=== PATIENT | male | born 1955 | race Caucasian/White ===

== ENCOUNTER 2020-05-29 10:41 | Inpatient (IN) | payer MEDICARE, BC ==
[~2020-05-29] VITALS: Ht 180.3 cm; Wt 70.3 kg
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
[2020-05-29] MEDS ORDERED: SILD100T PO (11:13)
[2020-05-29] MEDS ORDERED: TADA5TAB2 PO (11:13)
[2020-05-29] MEDS ORDERED: TAMS-12 PO (11:13)
[2020-05-29] MEDS ORDERED: LITH300T PO (11:13)
[2020-05-29 11:17] LABS: BASOPHILS % (AUTO) 0.5 % (0.0-2.0); EOSINOPHILS % (AUTO) 0.3 % (0.0-6.0); HEMATOCRIT 40 % (39-51); HEMOGLOBIN 13.4 g/dL (13.5-17.5); LYMPHOCYTES # (AUTO) 0.8 /CMM (0.8-4.8); LYMPHOCYTES % (AUTO) 11.3 % (20.0-44.0); MEAN CORPUSCULAR HGB CONC 34 g/dl (31.0-36.0); MEAN CORPUSCULAR VOLUME 94 fL (80-96); MONOCYTES # (AUTO) 0.5 /CMM (0.1-1.30); NEUTROPHILS # (AUTO) 5.5 /CMM (1.8-8.9); NEUTROPHILS % (AUTO) 80.9 % (43.0-81.0); PLATELET COUNT (AUTO) 263 /CMM (150-450); RED BLOOD CELL COUNT(AUTO) 4.21 MIL/uL (4.5-6.0); WHITE BLOOD COUNT (AUTO) 6.8 K/uL (4.3-11.0)
[2020-05-29 11:32] LABS: ALANINE AMINOTRANSFERASE 67 U/L (12-78); ALBUMIN 4.2 g/dL (3.4-5.0); ALCOHOL, BLOOD < 3 mg/dL (0-0); ALKALINE PHOSPHATASE 76 U/L (46-116); ASPARTATE AMINOTRANSFERASE 60 U/L (15-37); BILIRUBIN,DIRECT 0.3 mg/dL (0.0-0.2); BILIRUBIN,TOTAL 1.6 mg/dL (0.2-1.0); CARBON DIOXIDE 25 mmol/L (21-32); CHLORIDE 102 mmol/L (98-107); GLUCOSE 100 mg/dL (74-106); POTASSIUM 3.6 mmol/L (3.5-5.1); SODIUM SERUM 137 mmol/L (136-145); TOTAL PROTEIN, SERUM 7.5 g/dL (6.4-8.2); UREA NITROGEN, BLOOD 12 mg/dL (7-18)
[2020-05-29 11:33] LABS: ACETAMINOPHEN 0 ug/ml (10-30)
[2020-05-29 11:38] LABS: BILIRUBIN,URINE Negative (NEGATIVE); COLOR,URINE YELLOW (YELLOW); LEUKOCYTE ESTERASE ,URINE Negative (NEGATIVE); NITRITE, URINE Negative (NEGATIVE); PROTEIN,URINE Negative (NEGATIVE); UGLUCOSE Negative (NEGATIVE); UROBILINOGEN,URINE 0.2 EU/dL (0.2)
--- NOTE | 2020-05-29 11:40 | NUR ---
RAPID COVID SWAB DONE AND SENT TO LAB
--- NOTE | 2020-05-29 12:25 | NUR ---
RECEIVED RESULTS FROM LAB: RAPID COVID NEGATIVE
--- NOTE | 2020-05-29 13:17 | NUR ---
report given to Lily ASHFORD for annetta
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
[2020-05-29 16:00] VITALS: BP 132/83
[2020-05-29] MEDS ORDERED: MAGNESIUM HYDROXIDE 30 ML UDC PO PRN (16:00)
[2020-05-29] MEDS ORDERED: BLOOD SUGAR DIAGNOSTIC 1 EACH STRIP IN ONE (16:00)
[2020-05-29] MEDS ORDERED: MAG HYDROX/AL HYDROX/SIMETH 30 ML UDC PO PRN (16:00)
[2020-05-29] MEDS: TAMSULOSIN 0.4 MG CAP.SR.24H PO SCH (18:39)
[2020-05-29 20:00] VITALS: BP 105/55
[2020-05-30 06:59] LABS: CHOLESTEROL 122 mg/dL (<200); HDL CHOLESTEROL 67 mg/dL (40-60); LDL 49 mg/dL (0-99); TRIGLYCERIDES 54 mg/dL (30-150)
[2020-05-30 07:17] LABS: ALBUMIN 3.5 g/dL (3.4-5.0); BILIRUBIN,TOTAL 0.8 mg/dL (0.2-1.0); CALCIUM, SERUM 8.3 mg/dL (8.5-10.1); CREATININE 0.8 mg/dL (0.6-1.3); POTASSIUM 3.2 mmol/L (3.5-5.1); TOTAL PROTEIN, SERUM 6.4 g/dL (6.4-8.2)
[2020-05-30] MEDS: POTASSIUM CHLORIDE 20 MEQ TAB.PRT.SR PO ONE (10:00)
[2020-05-30] MEDS: LITHIUM CARBONATE (300 MG CAP) 300 MG CAPSULE PO SCH ×2 (11:15→20:52)
[2020-05-30 11:27] VITALS: BP 142/91
--- NOTE | 2020-05-30 12:15 | NUR ---
SW Initial Discharge Plan: Patient currently resides at [id number] [place] [address], [place] [id number]; ([phone]). Patient would want to return back home. This SW contacted patient's Saloni ([phone]) to gather collateral. Per Saloni, she does not want patient back home. Saloni wants patient at a nursing facility. This SW will help coordinate discharge plan.
--- NOTE | 2020-05-30 12:16 | NUR ---
SW Family Contact: This SW spoke with patient's Saloni ([phone]) who stated patient cannot return back home because she is unable to take care of him and is scared of him.
[2020-05-30] MEDS: LORAZEPAM 1 MG TABLET PO PRN ×2 (14:21→23:59)
[2020-05-30] MEDS ORDERED: OLANZAPINE 10 MG VIAL IM STA (14:22)
--- NOTE | 2020-05-30 14:28 | NUR ---
RN NOTE :PATIENT AGITATED AND MEDICATED WITH ATIVAN 1MG PO X1. WILL CONTINUE TO MONITOR .
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
[2020-05-30] MEDS ORDERED: CLONIDINE HCL 0.1 MG TABLET PO PRN (16:30)
[2020-05-30 16:47] VITALS: BP 156/101
[2020-05-30] MEDS: TAMSULOSIN 0.4 MG CAP.SR.24H PO SCH (17:12)
--- NOTE | 2020-05-30 18:27 | NUR ---
RN NOTE:PATIENT BP 156/101 ,PULSE 75 DR. CUELLO NOTIFIED WITH NEW ORDER CLONIDINE 0.1MG PO Q6 PRN FOR SBP ABOVE 150 MEDICATE PATIENT AND BP AT 1800 150/80 P 76. WILL CONTINUE TO MONITOR.
[2020-05-30 20:00] VITALS: BP 129/69
[2020-05-30] MEDS: ZOLPIDEM TARTRATE 5 MG TABLET PO PRN (22:05)
--- NOTE | 2020-05-30 22:07 | NUR ---
RN NOTES: INSOMNIA PT. UNABLE TO SLEEP AMBIEN 5 MG PO PRN GIVEN ,WILL CONTINUE TO MONITOR.
--- NOTE | 2020-05-31 | NUR ---
RN NOTES: ANXIETY PT. VERY ANXIOUS PARANOID SCREAMING YELLING IN THE HALLWAY ATIVAN 1 MG PO PRN GIVEN , WILL CONTINUE TO MONITOR.
[2020-05-31 07:00] LABS: CALCIUM, SERUM 8.6 mg/dL (8.5-10.1); CREATININE 0.8 mg/dL (0.6-1.3); POTASSIUM 3.3 mmol/L (3.5-5.1)
--- NOTE | 2020-05-31 07:07 | NUR ---
RN NOTES: PT. RESTING HIS ROOM, NO ACUTE DISTRESS NOTES , NO CHANGE OF CONDITION NOTED , DENIES ANY PAIN DISCOMFORT AT THIS TIME ,PT. BEHAVIOR EASILY AGITAED, PARANOID, HYPERVERBAL NEEDS FREQUENTLY REDIRECTIONS, ALL NEEDS ATTENDED AND ANTICIPATED, WILL ENDORSE TO DAY NURSE FOR CONTINUITY OF CARE .
[2020-05-31 08:00] VITALS: BP 131/88
[2020-05-31] MEDS: ARIPIPRAZOLE 5 MG TABLET PO SCH (09:11)
[2020-05-31] MEDS: LORAZEPAM 1 MG TABLET PO PRN (09:11)
[2020-05-31] MEDS: LITHIUM CARBONATE (300 MG CAP) 300 MG CAPSULE PO SCH ×2 (09:11→20:45)
[2020-05-31] MEDS ORDERED: POTASSIUM CHLORIDE 20 MEQ TAB.PRT.SR PO ONE (10:00)
--- NOTE | 2020-05-31 11:12 | NUR ---
SW SNF Referral: WSW faxed patient's referral packet to [facility] ([phone]) for review and patient is accepted. Duglas and ADELE approved patient's admission.
--- NOTE | 2020-05-31 11:13 | NUR ---
ROXANNA Family Contact: ROXANNA spoke with patient's Saloni ([phone]) and told her of patient' acceptance at [facility]. She was very happy and thankful.
[2020-05-31 16:00] VITALS: BP 134/90
[2020-05-31] MEDS: TAMSULOSIN 0.4 MG CAP.SR.24H PO SCH (18:28)
[2020-05-31 20:18] VITALS: BP 125/85
[2020-06-01 08:00] VITALS: BP 130/90
[2020-06-01] MEDS: ARIPIPRAZOLE 5 MG TABLET PO SCH (09:12)
[2020-06-01] MEDS: LORAZEPAM 1 MG TABLET PO PRN (09:12)
[2020-06-01] MEDS: LITHIUM CARBONATE (300 MG CAP) 300 MG CAPSULE PO SCH ×2 (09:12→21:56)
--- NOTE | 2020-06-01 09:20 | NUR ---
yelling out,starting to be very agitated and combative given ativan 1 mg po.
--- NOTE | 2020-06-01 16:56 | NUR ---
agitated in am,quieter now.
[2020-06-01 17:00] VITALS: BP 133/88
[2020-06-01] MEDS: TAMSULOSIN 0.4 MG CAP.SR.24H PO SCH (18:30)
[2020-06-01 20:04] VITALS: BP 101/52
[2020-06-01 20:30] LABS: CALCIUM, SERUM 8.8 mg/dL (8.5-10.1); CREATININE 0.8 mg/dL (0.6-1.3); POTASSIUM 3.8 mmol/L (3.5-5.1)
[2020-06-02 08:00] VITALS: BP 121/73
[2020-06-02] MEDS ORDERED: ARIPIPRAZOLE 5 MG TABLET PO SCH (09:00)
--- NOTE | 2020-06-02 09:30 | NUR ---
Followed up with lab on lithium toxicity results and they have yet to be sent to [email or web address] for processing. Held AM lithium dose at this time until toxicity results come back. aware.
[2020-06-02] MEDS: LITHIUM CARBONATE (300 MG CAP) 300 MG CAPSULE PO SCH ×2 (11:56→21:28)
[2020-06-02 16:00] VITALS: BP 134/82
[2020-06-02] MEDS: OLANZAPINE ZYDIS 5 MG TAB.RAPDIS PO SCH (17:03)
[2020-06-02] MEDS: TAMSULOSIN 0.4 MG CAP.SR.24H PO SCH (17:03)
--- NOTE | 2020-06-02 18:51 | NUR ---
RN CLOSING NOTE Patient compliant with medications today, appears disheveled, periods of paranoia. Patient is currently in room, resting. Safety precautions in place. Will endorse to oncoming shift.
--- NOTE | 2020-06-02 19:32 | NUR ---
GPS RN NOTE, RECEIVED PATIENT AWAKE AND IN BED, NO S/S OR COMPLAINTS OF PAIN AT THIS TIME. PATIENT IS DISPLAYING NO S/S OF APPARENT DISTRESS AT THIS TIME. PATIENT BREATHING IS UNLABORED WITH EQUAL RISE AND FALL OF THE CHEST. PATIENT IS ALERT AND ORIENTED X 1-2 ON ROOM AIR WITH A SPO2 95%. PATIENT IS COMPLIANT WITH MEDICATIONS, ANXIOUS AT TIMES, PARANOID, GRANDIOSE, HYPERVERBAL, AND COOPERATIVE. PATIENT DENIES SUICIDAL AND HOMICIDAL IDEATIONS AT THIS TIME. PATIENT ASSISTED WITH TURNING AND REPOSITIONING Q2HR AND PRN FOR COMFORT AND CIRCULATION. PATIENT HAS NO NEEDS AT THIS TIME. PATIENT EDUCATED ON THE USE OF THE CALL ARAGON. PATIENT BED SIDE RAILS UP X 2 FOR SAFETY. PATIENT BED IS LOCKED, LOW, WITH BED ALARM ON. WILL CONTINUE TO MONITOR THIS PATIENT Q15 MINUTES WITH THE HELP OF STAFF TO MAINTAIN SAFETY.
[2020-06-02 20:28] VITALS: BP 147/81
[2020-06-03 08:00] VITALS: BP 135/89
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
[2020-06-03] MEDS: OLANZAPINE ZYDIS 5 MG TAB.RAPDIS PO SCH ×2 (09:22→16:56)
[2020-06-03] MEDS: LITHIUM CARBONATE (300 MG CAP) 300 MG CAPSULE PO SCH ×3 (09:22→10:39)
--- NOTE | 2020-06-03 09:49 | NUR ---
Court Hearing: Patient court hearing is today and it was upheld for GD.
--- NOTE | 2020-06-03 13:20 | NUR ---
Individual Counseling: pantry goods worker met with patient for brief counseling to help address patients presenting problem aggressive behavior. Patient is unable to engage in a meaningful conversation due to patient being verbally aggressive. Patient was yelling "I want to talk to my ". Patient was unable to have counseling at this moment.
[2020-06-03 16:00] VITALS: BP 141/88
[2020-06-03] MEDS: TAMSULOSIN 0.4 MG CAP.SR.24H PO SCH (18:14)
--- NOTE | 2020-06-03 19:30 | NUR ---
GPS RN NOTE, RECEIVED PATIENT AWAKE AND IN BED, NO S/S OR COMPLAINTS OF PAIN AT THIS TIME. PATIENT IS DISPLAYING NO S/S OF APPARENT DISTRESS AT THIS TIME. PATIENT BREATHING IS UNLABORED WITH EQUAL RISE AND FALL OF THE CHEST. PATIENT IS ALERT AND ORIENTED X 1-2 ON ROOM AIR WITH A SPO2 98%. PATIENT IS COMPLIANT WITH MEDICATIONS, ANXIOUS AT TIMES, PARANOID, GRANDIOSE, RELIGIOUSLY PREOCCUPIED, HYPERVERBAL, AND COOPERATIVE. PATIENT DENIES SUICIDAL AND HOMICIDAL IDEATIONS AT THIS TIME. PATIENT ASSISTED WITH TURNING AND REPOSITIONING Q2HR AND PRN FOR COMFORT AND CIRCULATION. PATIENT HAS NO NEEDS AT THIS TIME. PATIENT EDUCATED ON THE USE OF THE CALL ARAGON. PATIENT BED SIDE RAILS UP X 2 FOR SAFETY. PATIENT BED IS LOCKED, LOW, WITH BED ALARM ON. WILL CONTINUE TO MONITOR THIS PATIENT Q15 MINUTES WITH THE HELP OF STAFF TO MAINTAIN SAFETY.
[2020-06-03 20:00] VITALS: BP 131/76
[2020-06-03] MEDS: LITHIUM CARBONATE 150 MG CAPSULE PO SCH (21:17)
--- NOTE | 2020-06-03 21:17 | NUR ---
GPS RN NOTE, PATIENT REFUSED LITHIUM CARBONATE 600 MG PO HS. OFFERED THREE TIMES AND STILL PATIENT REFUSED STATING, " I ONLY TAKE 300 MG OF LITHIUM CARBONATE AT A TIME AND IF I TAKE 600 MG YOU WILL OVERDOSE ME ". EDUCATED PATIENT ON THE RISKS AND BENEFITS OF TAKING AND REFUSING LITHIUM. WILL CONTINUE TO MONITOR THIS PATIENT.
[2020-06-04 08:00] VITALS: BP 161/99
[2020-06-04] MEDS: LITHIUM CARBONATE (300 MG CAP) 300 MG CAPSULE PO SCH (08:53)
[2020-06-04] MEDS: OLANZAPINE ZYDIS 5 MG TAB.RAPDIS PO SCH ×2 (08:53→17:22)
--- NOTE | 2020-06-04 09:00 | NUR ---
RN NOTE- PT INAPPROPRIATE SHOWING HIS GENITALS IN HALLWAY. REDIRECTED AND INFORMED SUCH BEHAVIOR WAS INTOLERABLE. AGREED TO CEASE BEHAVIORS AND APOLOGIZED. MED COMPLIANT, PO INTAKE GOOD DELUSIONAL AND MANIC AT TIMES
[2020-06-04] MEDS: LORAZEPAM 1 MG TABLET PO PRN (15:31)
--- NOTE | 2020-06-04 15:31 | NUR ---
RN NOTE- INCREASING AGITATION REGARDING "DEMONS IN HALLS ON FLOORS" REDIRECTED. PT WAVING ARMS AND YELLING AT OTHER PTS. ATIVAN 1 MG GIVEN
[2020-06-04 16:00] VITALS: BP 156/99
[2020-06-04] MEDS: TAMSULOSIN 0.4 MG CAP.SR.24H PO SCH (18:22)
--- NOTE | 2020-06-04 19:30 | NUR ---
GPS RN NOTE, RECEIVED PATIENT AWAKE AND IN BED, NO S/S OR COMPLAINTS OF PAIN AT THIS TIME. PATIENT IS DISPLAYING NO S/S OF APPARENT DISTRESS AT THIS TIME. PATIENT BREATHING IS UNLABORED WITH EQUAL RISE AND FALL OF THE CHEST. PATIENT IS ALERT AND ORIENTED X 1-2 ON ROOM AIR WITH A SPO2 97%. PATIENT IS COMPLIANT WITH MEDICATIONS, ANXIOUS AT TIMES, PARANOID, GRANDIOSE, RELIGIOUSLY PREOCCUPIED, SEXUALLY INAPPROPRIATE, HYPERVERBAL, AND COOPERATIVE. PATIENT DENIES SUICIDAL AND HOMICIDAL IDEATIONS AT THIS TIME. PATIENT ASSISTED WITH TURNING AND REPOSITIONING Q2HR AND PRN FOR COMFORT AND CIRCULATION. PATIENT HAS NO NEEDS AT THIS TIME. PATIENT EDUCATED ON THE USE OF THE CALL ARAGON. PATIENT BED SIDE RAILS UP X 2 FOR SAFETY. PATIENT BED IS LOCKED, LOW, WITH BED ALARM ON. WILL CONTINUE TO MONITOR THIS PATIENT Q15 MINUTES WITH THE HELP OF STAFF TO MAINTAIN SAFETY.
[2020-06-04 20:05] VITALS: BP 117/62
[2020-06-04] MEDS: LITHIUM CARBONATE 150 MG CAPSULE PO SCH (22:15)
[2020-06-05] MEDS: ZOLPIDEM TARTRATE 5 MG TABLET PO PRN ×2 (00:57→21:36)
--- NOTE | 2020-06-05 00:57 | NUR ---
GPS RN NOTE, PATIENT HAS A COMPLAINT OF NOT BEING ABLE TO SLEEP AND IS REQUESTING AMBIEN AT THIS TIME. PATIENT VITAL SIGNS ARE STABLE. GAVE AMBIEN 5MG PO HS PRN ORDERED. WILL REASSESS FOR INSOMNIA AND I WILL CONTINUE TO MONITOR THIS PATIENT.
[2020-06-05 08:00] VITALS: BP 131/85
[2020-06-05] MEDS: LITHIUM CARBONATE (300 MG CAP) 300 MG CAPSULE PO SCH (09:27)
[2020-06-05] MEDS: OLANZAPINE ZYDIS 5 MG TAB.RAPDIS PO SCH ×2 (09:27→16:31)
[2020-06-05 16:00] VITALS: BP 135/70
[2020-06-05] MEDS: TAMSULOSIN 0.4 MG CAP.SR.24H PO SCH (17:15)
[2020-06-05 20:00] VITALS: BP 147/94
[2020-06-05] MEDS: LITHIUM CARBONATE 150 MG CAPSULE PO SCH (21:34)
--- NOTE | 2020-06-05 21:40 | NUR ---
Pt c/o insomnia. Least restrictive measures ineffective. Ambien 5 mg po prn given as ordered. Will continue to monitor.
--- NOTE | 2020-06-05 22:48 | NUR ---
Post 1 hr, Abramien effective. Pt asleep in bed easy to arouse. Will continue to monitor.
[2020-06-06] MEDS: LORAZEPAM 1 MG TABLET PO PRN (03:00)
--- NOTE | 2020-06-06 03:05 | NUR ---
Pt c/o of anxiety. Roaming in hallways and talking loudly. Least restrictive measures ineffective. Ativan 1 mg po prn given as ordered. Will continue to monitor.
--- NOTE | 2020-06-06 04:10 | NUR ---
Post 1 hr Ativan effective. Pt in room sitting in bed quietly and calm. Will continue to monitor.
[2020-06-06 08:00] VITALS: BP 123/85
--- NOTE | 2020-06-06 09:00 | NUR ---
RN NOTE- ALERT ORIENTED MED COMPLIANT STILL CONTINUES W DELUSIONS REGARDING DEMONS EVERYWHERE. ZYPREXA INCREASED PO INTAKE GOOD. NO INAPPROPRIATE BEHAVIOR OR CONVERSATIONS
[2020-06-06] MEDS: LITHIUM CARBONATE (300 MG CAP) 300 MG CAPSULE PO SCH (09:42)
[2020-06-06] MEDS: OLANZAPINE ZYDIS 5 MG TAB.RAPDIS PO SCH ×2 (09:42→16:56)
[2020-06-06 16:00] VITALS: BP 120/88
[2020-06-06] MEDS: TAMSULOSIN 0.4 MG CAP.SR.24H PO SCH (18:05)
[2020-06-06 20:54] VITALS: BP 130/76
[2020-06-06] MEDS: diphenhydrAMINE HCL 50 MG CAPSULE PO SCH (22:09)
[2020-06-06] MEDS: LITHIUM CARBONATE 150 MG CAPSULE PO SCH (22:09)
[2020-06-06] MEDS: ZOLPIDEM TARTRATE 5 MG TABLET PO PRN (23:57)
--- NOTE | 2020-06-07 06:53 | NUR ---
GPS RN CLOSING NOTES: PATIENT AWAKE, A/O X2, PACING IN HALLWAY, RELIGIOUSLY PREOCCUPIED. SLEPT 5 HRS THIS SHIFT. RESPIRATION EVEN AND UNLABORED WITH EQUAL RISE AND FALL OF THE CHEST ON ROOM AIR. NO S/S OF DISTRESS. SAFETY PRECAUTION MAINTAINED, BED IN LOWEST POSITION AND LOCKED. Q15 MINUTES SAFETY ROUND CONTINUED. ALL PATIENT CARE NEEDS MET AT THIS TIME. WILL CONTINUE TO MONITOR PATIENT FOR MOOD, BEHAVIOR AND SAFETY AND ENDORSE TO AM SHIFT.
[2020-06-07 08:00] VITALS: BP 130/90
[2020-06-07] MEDS: OLANZAPINE ZYDIS 5 MG TAB.RAPDIS PO SCH ×2 (08:17→17:48)
[2020-06-07] MEDS: LITHIUM CARBONATE (300 MG CAP) 300 MG CAPSULE PO SCH (08:17)
--- NOTE | 2020-06-07 14:52 | NUR ---
Family Contact: SW spoke with patient's Saloni ([phone]) and informed her that the pt is manic and has not shown enough improvement to be discharged to [facility] at this time. She expressed her concern with his progress and states that she wants him to improve so eventually he will be able to come back home. SW stated that the plan is to take it one step at a time and if he shows enough improvement at the SNF she will be able to take him home if she wants.
[2020-06-07 16:00] VITALS: BP 138/98
[2020-06-07] MEDS: TAMSULOSIN 0.4 MG CAP.SR.24H PO SCH (18:35)
[2020-06-07 20:52] VITALS: BP 128/95
[2020-06-07] MEDS: LITHIUM CARBONATE 150 MG CAPSULE PO SCH (22:00)
[2020-06-07] MEDS: diphenhydrAMINE HCL 50 MG CAPSULE PO SCH (22:00)
[2020-06-07] MEDS: ZOLPIDEM TARTRATE 5 MG TABLET PO PRN (22:05)
--- NOTE | 2020-06-07 22:10 | NUR ---
PT refused to take 2200 [place] carbonate 600g
--- NOTE | 2020-06-07 22:11 | NUR ---
Pt refused to take 2200 lithium carbonate 600 mg. Pt only wants to take 300 mg. Pt took 300 mg and states, "I dont want 600 mg because it gives me lithium toxicity but i will take 300 mg." Explained risk and benefits and offered x3. Charge nurse RN aware and will endorse to next shift.
--- NOTE | 2020-06-07 22:15 | NUR ---
Pt refused Benadryl 50 mg. Pt states " I dont need that, i want ambien". Pt c/o of insomnia. Least restrictive measures ineffective. Ambien PRN given as ordered. Will continue to monitor.
--- NOTE | 2020-06-07 23:18 | NUR ---
Post 1 hr ambien 5 mg effective. Pt asleep in bed easy to arouse. Frequent visual check done for safety. Will continue to monitor.
[2020-06-08 08:00] VITALS: BP 118/88
[2020-06-08] MEDS: LORAZEPAM 1 MG TABLET PO PRN (08:09)
[2020-06-08] MEDS: TAMSULOSIN 0.4 MG CAP.SR.24H PO SCH (08:09)
[2020-06-08] MEDS: LITHIUM CARBONATE (300 MG CAP) 300 MG CAPSULE PO SCH (08:10)
[2020-06-08] MEDS: OLANZAPINE ZYDIS 5 MG TAB.RAPDIS PO SCH ×2 (08:10→17:34)
--- NOTE | 2020-06-08 08:10 | NUR ---
starting to get agitated,given ativan po.
--- NOTE | 2020-06-08 14:24 | NUR ---
Family Contact: SW spoke with patient's Saloni ([phone]) and informed her that the pt appears to remain manic and that once he stabilizes and the MD provides a discharge date the SW will inform her and send the pt. SW stated that she is also attempting to locate the pts belongings.
[2020-06-08 16:00] VITALS: BP 120/90
--- NOTE | 2020-06-08 18:30 | NUR ---
loud and very needy,but med compliant.
[2020-06-08 20:42] VITALS: BP 151/92
[2020-06-08] MEDS: LITHIUM CARBONATE 150 MG CAPSULE PO SCH (21:28)
[2020-06-08] MEDS: diphenhydrAMINE HCL 50 MG CAPSULE PO SCH (21:28)
[2020-06-08] MEDS: ZOLPIDEM TARTRATE 5 MG TABLET PO PRN (23:16)
[2020-06-09 08:00] VITALS: BP 142/92
[2020-06-09] MEDS: OLANZAPINE ZYDIS 5 MG TAB.RAPDIS PO SCH ×2 (08:44→16:48)
[2020-06-09] MEDS: LORAZEPAM 1 MG TABLET PO PRN ×2 (08:44→19:45)
[2020-06-09] MEDS: LITHIUM CARBONATE (300 MG CAP) 300 MG CAPSULE PO SCH (08:44)
--- NOTE | 2020-06-09 12:21 | NUR ---
Individual Intervention: SW met with the pt in the activities room and witnessed that the pt was dancing around to the news. SW attempted to speak to the pt and he was speaking nonsensically. SW deemed the pt to be inappropriate for individual intervention due to his manic behaviors at this time.
[2020-06-09 16:00] VITALS: BP 136/90
[2020-06-09] MEDS: TAMSULOSIN 0.4 MG CAP.SR.24H PO SCH (17:09)
--- NOTE | 2020-06-09 19:49 | NUR ---
RN NOTES : ANXIETY PT. C/O FEELING ANXIOUS PARANOID,HYPERVERVAL, PACING IN HALLWAY ATIVAN 1 MG PO PRN GIVEN PER PT. REQUEST , WILL CONTINUE TO MONITOR.
[2020-06-09 20:25] VITALS: BP 135/90
[2020-06-09] MEDS: diphenhydrAMINE HCL 50 MG CAPSULE PO SCH (21:26)
[2020-06-09] MEDS: LITHIUM CARBONATE 150 MG CAPSULE PO SCH (21:26)
--- NOTE | 2020-06-09 21:27 | NUR ---
GPS-RN NOTES: REFUSAL OF MEDS PATIENT REFUSED LITHIUM 600 MG PO , BENADRYL 50 MG PO DOSE FOR TONIGHT. ENCOURAGED, EXPLAINED THE IMPORTANCE OF MEDICATION COMPLIANCE BUT PATIENT CONTINUED TO REFUSE. PER PT. MEDICATIONS MAKE ME SICK ,I DONT WANT TAKE,WILL CONTINUE TO MONITOR.
[2020-06-10] MEDS: LORAZEPAM 1 MG TABLET PO PRN (03:20)
--- NOTE | 2020-06-10 03:22 | NUR ---
RN NOTES : ANXIETY PT. C/O FEELING ANXIOUS PARANOID, SCREAMING YELLING HYPERVERVAL, PACING IN HALLWAY ATIVAN 1 MG PO PRN GIVEN PER PT. REQUEST , WILL CONTINUE TO MONITOR.
[2020-06-10 08:00] VITALS: BP 139/90
[2020-06-10] MEDS: ENSURE ENLIVE CHOC 237 ML CAN PO SCH ×2 (08:02→16:34)
[2020-06-10] MEDS: OLANZAPINE ZYDIS 5 MG TAB.RAPDIS PO SCH ×2 (08:02→16:34)
[2020-06-10] MEDS: LITHIUM CARBONATE (300 MG CAP) 300 MG CAPSULE PO SCH (08:02)
--- NOTE | 2020-06-10 09:00 | NUR ---
RN NOTE- LABILE PT RESTLESS AND ANXIOUS, PT DISHEVELED WITH [employer]. PT MED COMPLIANT THIS AM. SAFETY PRECAUTIONS MAINTAINED, WILL CONTACT DR JAIME REGARDING BEHAVIOR
[2020-06-10] MEDS ORDERED: HALOPERIDOL LACTATE INJ 5 MG/ML VIAL IM ONE (10:00)
[2020-06-10] MEDS ORDERED: diphenhydrAMINE HCL 50 MG/ML VIAL IM ONE (10:00)
--- NOTE | 2020-06-10 10:00 | NUR ---
RN NOTE- PT YELLING SCREAMING POSTURING. R YENI ORDERED HALDOL 5 MG AND BENADRYL 25 MG IM. GIVEN W STAFF ASSIST
--- NOTE | 2020-06-10 12:20 | NUR ---
Family Contact: ROXANNA spoke with patient's Saloni ([phone]) and informed her that the pt is exhibiting manic behavior and that he will not be at the best state to be discharged back to his home at this time. SW stated that the best plan for the pt is to be discharged to SNF from the hospital and the pts stated that she agrees. ROXANNA also stated that she contacted [facility] and spoke to the instrument maintenance supervisor who stated that the ER staff from the hospital signed that the pts belongings were passed to them so the SW stated that pts can speak to the nursing instrument maintenance supervisor to find out where the pts belongings are.
[2020-06-10] MEDS: DIVALPROEX SODIUM 125 MG CAP.SPRINK PO SCH ×2 (12:50→16:33)
--- NOTE | 2020-06-10 12:50 | NUR ---
RN NOTE- DEPAKOTE 250 MG NOT G9VEN AT THIS TIME PT IS STILL VERY SOMNOLENT FROM EMERGENCY IM GIVEN THIS MORNING.
[2020-06-10] MEDS ORDERED: DIVALPROEX SODIUM 125 MG CAP.SPRINK PO SCH (13:00)
[2020-06-10 16:00] VITALS: BP 139/99
[2020-06-10] MEDS: TAMSULOSIN 0.4 MG CAP.SR.24H PO SCH (18:29)
--- NOTE | 2020-06-10 19:30 | NUR ---
GPS RN NOTE, RECEIVED PATIENT AWAKE AND IN ROOM, NO S/S OR COMPLAINTS OF PAIN AT THIS TIME. PATIENT IS DISPLAYING NO S/S OF APPARENT DISTRESS AT THIS TIME. PATIENT BREATHING IS UNLABORED WITH EQUAL RISE AND FALL OF THE CHEST. PATIENT IS ALERT AND ORIENTED X 2 ON ROOM AIR WITH A SPO2 96%. PATIENT IS SELECTIVE WITH MEDICATIONS, HYPERVERBAL AT TIMES, RELIGIOUSLY PREOCCUPIED, SEXUALLY INAPPROPRIATE, NEEDS LOTS OF REDIRECTION, AND COOPERATIVE. PATIENT DENIES SUICIDAL AND HOMICIDAL IDEATIONS AT THIS TIME. PATIENT ASSISTED WITH TURNING AND REPOSITIONING Q2HR AND PRN FOR COMFORT AND CIRCULATION. PATIENT HAS NO NEEDS AT THIS TIME. PATIENT EDUCATED ON THE USE OF THE CALL ARAGON. WILL CONTINUE TO MONITOR THIS PATIENT Q15 MINUTES WITH THE HELP OF STAFF TO MAINTAIN SAFETY.
[2020-06-10 20:12] VITALS: BP 110/82
[2020-06-10] MEDS: ZOLPIDEM TARTRATE 5 MG TABLET PO PRN (21:25)
[2020-06-10] MEDS: LITHIUM CARBONATE 150 MG CAPSULE PO SCH (21:42)
--- NOTE | 2020-06-10 21:42 | NUR ---
GPS RN NOTE, PATIENT IS REQUESTING AMBIEN AT THIS TIME. PATIENT VITAL SIGNS ARE STABLE. GAVE AMBIEN 5MG PO HS PRN ORDERED. WILL REASSESS FOR INSOMNIA AND I WILL CONTINUE TO MONITOR THIS PATIENT WITH THE HELP OF STAFF.
--- NOTE | 2020-06-10 21:42 | NUR ---
GPS RN NOTE, PATIENT REFUSED LITHIUM CARBONATE 300MG PO HS. OFFERED THREE TIMES AND STILL PATIENT REFUSED STATING, " I HAVE ENOUGH OF LITHIUM TODAY I FELL MY CENTRAL NERVOUS SYSTEM IS FULL ". EDUCATED PATIENT ON THE RISKS AND BENEFITS OF TAKING AND REFUSING LITHIUM. WILL CONTINUE TO MONITOR THIS PATIENT.
--- NOTE | 2020-06-11 00:06 | NUR ---
GPS RN NOTE, PATIENT HAS A COMPLAINT OF FEELING ANXIOUS AND IS REQUESTING ATIVAN AT THIS TIME. PATIENT VITAL SIGNS ARE STABLE . GAVE ATIVAN 1MG PO Q6HR PRN ORDERED. WILL REASSESS FOR ANXIETY AND I WILL CONTINUE TO MONITOR THIS PATIENT WITH THE HELP OF STAFF.
[2020-06-11] MEDS: LORAZEPAM 1 MG TABLET PO PRN ×3 (00:13→19:50)
[2020-06-11] MEDS: OLANZAPINE ZYDIS 5 MG TAB.RAPDIS PO SCH ×2 (07:50→16:59)
[2020-06-11] MEDS: LITHIUM CARBONATE (300 MG CAP) 300 MG CAPSULE PO SCH (07:50)
[2020-06-11] MEDS: DIVALPROEX SODIUM 125 MG CAP.SPRINK PO SCH ×3 (07:50→16:58)
[2020-06-11] MEDS: ENSURE ENLIVE CHOC 237 ML CAN PO SCH ×2 (07:58→16:56)
--- NOTE | 2020-06-11 07:59 | NUR ---
given ativan for agitation.
[2020-06-11 08:00] VITALS: BP 134/76
--- NOTE | 2020-06-11 08:00 | NUR ---
RECEIVED PT. ALERT AND ORIENTED X1-2.ABLE TO AMBULATE EASILY,BUT NEEDS REDIRECTION WITH CONVERSATION.
[2020-06-11] MEDS: MENTHOL/CETYLPYRD (CEPACOL) 1 LOZ LOZENGE PO PRN (09:41)
--- NOTE | 2020-06-11 09:41 | NUR ---
GIVEN CEPACOL FOR HOARSE THROAT.
[2020-06-11 16:00] VITALS: BP 122/75
--- NOTE | 2020-06-11 16:22 | NUR ---
CALLING IN FREQ. TO CHECK ON PT.
[2020-06-11] MEDS: TAMSULOSIN 0.4 MG CAP.SR.24H PO SCH (16:59)
--- NOTE | 2020-06-11 19:51 | NUR ---
GPS-RN NOTES: PATIENT IS ANXIOUS AND RESTLESS. ADMINISTERED ATIVAN 1MG PO ORDERED. WILL CONTINUE FOR PATIENT'S SAFETY.
[2020-06-11 20:09] VITALS: BP 119/72
[2020-06-11] MEDS: LITHIUM CARBONATE 150 MG CAPSULE PO SCH (21:30)
[2020-06-12 08:00] VITALS: BP 142/87
[2020-06-12] MEDS: ENSURE ENLIVE CHOC 237 ML CAN PO SCH ×2 (08:00→17:24)
[2020-06-12] MEDS: DIVALPROEX SODIUM 125 MG CAP.SPRINK PO SCH ×3 (09:16→17:23)
[2020-06-12] MEDS: LITHIUM CARBONATE (300 MG CAP) 300 MG CAPSULE PO SCH (09:17)
[2020-06-12] MEDS: OLANZAPINE ZYDIS 5 MG TAB.RAPDIS PO SCH ×2 (09:17→17:23)
[2020-06-12 16:00] VITALS: BP 131/83
[2020-06-12] MEDS: TAMSULOSIN 0.4 MG CAP.SR.24H PO SCH (17:23)
[2020-06-12 20:00] VITALS: BP 124/80
[2020-06-12] MEDS: ZOLPIDEM TARTRATE 5 MG TABLET PO PRN (22:45)
[2020-06-12] MEDS: LITHIUM CARBONATE 150 MG CAPSULE PO SCH (22:46)
[2020-06-13 08:00] VITALS: BP 130/96
[2020-06-13] MEDS: ENSURE ENLIVE CHOC 237 ML CAN PO SCH ×2 (08:00→16:53)
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
[2020-06-13] MEDS: DIVALPROEX SODIUM 125 MG CAP.SPRINK PO SCH ×3 (09:03→16:50)
[2020-06-13] MEDS: OLANZAPINE ZYDIS 5 MG TAB.RAPDIS PO SCH ×2 (09:03→16:51)
[2020-06-13] MEDS: LITHIUM CARBONATE (300 MG CAP) 300 MG CAPSULE PO SCH (09:03)
[2020-06-13 16:00] VITALS: BP 145/92
[2020-06-13] MEDS: TAMSULOSIN 0.4 MG CAP.SR.24H PO SCH (17:56)
[2020-06-13] MEDS: LORAZEPAM 1 MG TABLET PO PRN (19:19)
[2020-06-13 20:00] VITALS: BP 142/84
[2020-06-13] MEDS: LITHIUM CARBONATE 150 MG CAPSULE PO SCH (21:11)
[2020-06-13] MEDS: ZOLPIDEM TARTRATE 5 MG TABLET PO PRN (22:29)
[2020-06-14] MEDS: LORAZEPAM 1 MG TABLET PO PRN (02:49)
--- NOTE | 2020-06-14 02:49 | NUR ---
RN NOTES: PT. C/O FEELING ANXIOUS PARANOID, SCREAMING YELLING HYPERVERVAL, PACING IN HALLWAY ATIVAN 1 MG PO PRN GIVEN PER PT. REQUEST , WILL CONTINUE TO MONITOR.
[2020-06-14 08:00] VITALS: BP 123/70
[2020-06-14] MEDS: ENSURE ENLIVE CHOC 237 ML CAN PO SCH ×2 (08:10→16:40)
[2020-06-14] MEDS: DIVALPROEX SODIUM 125 MG CAP.SPRINK PO SCH ×3 (09:11→17:14)
[2020-06-14] MEDS: LITHIUM CARBONATE (300 MG CAP) 300 MG CAPSULE PO SCH (09:12)
[2020-06-14] MEDS: OLANZAPINE ZYDIS 5 MG TAB.RAPDIS PO SCH ×2 (09:12→17:15)
--- NOTE | 2020-06-14 10:30 | NUR ---
Family Contact: ROXANNA spoke with patient's Saloni ([phone]), and informed her that the pt is going to be discharged the following day. She stated that the pt cannot return to the home and that the pt would have to be discharged to the SNF as she cannot take care of him in this state. ROXANNA then informed her that the pts belongings were found and that the staff will ensure that all of them are transferred with the pt when he discharges.
--- NOTE | 2020-06-14 12:52 | NUR ---
Family Contact: Patient's Saloni ([phone]) called the SW and stated that she "objects to the discharge." She states that the pt is not stable and that the pt will just be sent back to a psychiatric hospital if he is transferred before he is ready. SW expressed that the MD evaluated the pt daily and feels that the pt is ready to be discharged and will continue seeing the pt at the facility. Pts stated that she wants a call from the MD so the SW sent a message for a call to the pts .
--- NOTE | 2020-06-14 15:24 | NUR ---
PLEASANT.ORIENTED X1-2.PT. STATES VERY SLUGGISH FROM ATIVAN YESTERDAY.DR. JAIME INFORMED.
[2020-06-14 16:00] VITALS: BP 140/90
[2020-06-14] MEDS: TAMSULOSIN 0.4 MG CAP.SR.24H PO SCH (18:04)
[2020-06-14 19:32] VITALS: BP 123/79
[2020-06-14] MEDS: LITHIUM CARBONATE 150 MG CAPSULE PO SCH (21:02)
[2020-06-15] MEDS: ACETAMINOPHEN 325 MG TABLET PO PRN ×2 (04:07→21:41)
[2020-06-15] MEDS: ENSURE ENLIVE CHOC 237 ML CAN PO SCH ×2 (07:49→16:24)
[2020-06-15 08:00] VITALS: BP 107/68
[2020-06-15] MEDS: OLANZAPINE ZYDIS 5 MG TAB.RAPDIS PO SCH ×2 (08:04→16:24)
[2020-06-15] MEDS: DIVALPROEX SODIUM 125 MG CAP.SPRINK PO SCH ×5 (08:04→21:40)
[2020-06-15] MEDS: hydrOXYzine PAMOATE 25 MG CAPSULE PO PRN (08:04)
[2020-06-15] MEDS: LITHIUM CARBONATE (300 MG CAP) 300 MG CAPSULE PO SCH (08:04)
--- NOTE | 2020-06-15 08:24 | NUR ---
RN-CO: VISTARIL GIVEN FOR RESTLESSNESS.
--- NOTE | 2020-06-15 12:22 | NUR ---
RN-CO: DEPAKOTE 250 MG WAS GIVEN AT 0800 AND 1030 AM . NEXT DOSE WILL BE 1700 AND 2100.
[2020-06-15 16:00] VITALS: BP 130/86
[2020-06-15] MEDS: TAMSULOSIN 0.4 MG CAP.SR.24H PO SCH (16:34)
[2020-06-15 20:00] VITALS: BP 124/83
[2020-06-15] MEDS: LITHIUM CARBONATE 150 MG CAPSULE PO SCH (21:41)
[2020-06-15] MEDS: ZOLPIDEM TARTRATE 5 MG TABLET PO PRN (23:19)
[2020-06-16] MEDS: hydrOXYzine PAMOATE 25 MG CAPSULE PO PRN (07:39)
[2020-06-16 08:00] VITALS: BP 130/77
[2020-06-16] MEDS: ENSURE ENLIVE CHOC 237 ML CAN PO SCH ×2 (08:39→17:16)
[2020-06-16] MEDS: LITHIUM CARBONATE (300 MG CAP) 300 MG CAPSULE PO SCH (08:42)
[2020-06-16] MEDS: OLANZAPINE ZYDIS 5 MG TAB.RAPDIS PO SCH ×2 (08:42→17:12)
[2020-06-16] MEDS: DIVALPROEX SODIUM 125 MG CAP.SPRINK PO SCH ×4 (08:42→21:17)
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
[2020-06-16 16:00] VITALS: BP 137/88
[2020-06-16] MEDS: TAMSULOSIN 0.4 MG CAP.SR.24H PO SCH (17:13)
[2020-06-16 20:00] VITALS: BP 126/80
[2020-06-16] MEDS: LITHIUM CARBONATE 150 MG CAPSULE PO SCH (21:17)
[2020-06-16] MEDS: ACETAMINOPHEN 325 MG TABLET PO PRN (22:29)
[2020-06-16] MEDS: ZOLPIDEM TARTRATE 5 MG TABLET PO PRN (22:29)
--- NOTE | 2020-06-16 22:30 | NUR ---
GPS RN NOTE, PATIENT HAS A COMPLAINT OF LOWER LEG PAIN AT 2 OUT 10 ON THE PAIN SCALE AND IS REQUESTING TYLENOL AT THIS TIME. PATIENT VITAL SIGNS ARE STABLE. GAVE TYLENOL 650MG PO Q6HR PRN ORDERED. WILL REASSESS FOR PAIN AND I WILL CONTINUE TO MONITOR THIS PATIENT.
[2020-06-17] MEDS: ENSURE ENLIVE CHOC 237 ML CAN PO SCH ×2 (08:18→17:12)
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
[2020-06-17] MEDS: OLANZAPINE ZYDIS 5 MG TAB.RAPDIS PO SCH ×2 (09:09→17:09)
[2020-06-17] MEDS: LITHIUM CARBONATE (300 MG CAP) 300 MG CAPSULE PO SCH (09:09)
[2020-06-17] MEDS: DIVALPROEX SODIUM 125 MG CAP.SPRINK PO SCH ×4 (09:09→21:33)
[2020-06-17 10:37] VITALS: BP 136/85
--- NOTE | 2020-06-17 11:20 | NUR ---
Family Contact: SW spoke with patient's Saloni ([phone]) and informed her that the pt is going to be discharged back home on Saturday and she stated that she wants him home because we cannot force him into a facility but she is scared for her own safety. SW stated that if the pt starts exhibiting behaviors that are uncomfortable for her then she can call the police or a hospital for their PET team. Pts stated that she is not comfortable with that and she was concerned about his discharge instructions. SW expressed that the pts nurse will explain all of the medications and discharge instructions when they take him to her in front of the hospital. Pts stated that she wants to speak to the MD and SW stated that she will relay the message.
--- NOTE | 2020-06-17 14:04 | NUR ---
Family Contact: SW spoke with patient's Saloni ([phone]) and stated that the pt will be discharged on Saturday and pts stated that she will arrive around 2pm to moss picker the pt.
[2020-06-17 16:05] VITALS: BP 145/86
[2020-06-17] MEDS: TAMSULOSIN 0.4 MG CAP.SR.24H PO SCH (17:10)
--- NOTE | 2020-06-17 19:30 | NUR ---
GPS RN NOTE, RECEIVED PATIENT AWAKE AND IN ROOM, NO S/S OR COMPLAINTS OF PAIN AT THIS TIME. PATIENT IS DISPLAYING NO S/S OF APPARENT DISTRESS AT THIS TIME. PATIENT BREATHING IS UNLABORED WITH EQUAL RISE AND FALL OF THE CHEST. PATIENT IS ALERT AND ORIENTED X 2 ON ROOM AIR WITH A SPO2 95%. PATIENT IS SELECTIVE WITH MEDICATIONS, HYPERVERBAL AT TIMES, RELIGIOUSLY PREOCCUPIED, SEXUALLY INAPPROPRIATE, NEEDS LOTS OF REDIRECTION, AND COOPERATIVE. PATIENT DENIES SUICIDAL AND HOMICIDAL IDEATIONS AT THIS TIME. PATIENT ASSISTED WITH TURNING AND REPOSITIONING Q2HR AND PRN FOR COMFORT AND CIRCULATION. PATIENT HAS NO NEEDS AT THIS TIME. PATIENT EDUCATED ON THE USE OF THE CALL ARAGON. WILL CONTINUE TO MONITOR THIS PATIENT Q15 MINUTES WITH THE HELP OF STAFF TO MAINTAIN SAFETY.
[2020-06-17 19:48] VITALS: BP 107/66
[2020-06-17] MEDS: LITHIUM CARBONATE 150 MG CAPSULE PO SCH (21:32)
[2020-06-17] MEDS: ZOLPIDEM TARTRATE 5 MG TABLET PO PRN (23:17)
[2020-06-18 08:00] VITALS: BP 138/90
[2020-06-18] MEDS: ENSURE ENLIVE CHOC 237 ML CAN PO SCH ×2 (08:09→16:33)
--- NOTE | 2020-06-18 09:00 | NUR ---
RN NOTE- NO CHANGES PT PACING UNIT DAY ROOM AND HALLS WAVING ARMS OVERHEAD RELIGIOUSLY PREOCCUPIED, MANIC DELUSIONAL MED COMPLIANT PO INTAKE GOOD
[2020-06-18] MEDS: LITHIUM CARBONATE (300 MG CAP) 300 MG CAPSULE PO SCH (09:06)
[2020-06-18] MEDS: OLANZAPINE ZYDIS 5 MG TAB.RAPDIS PO SCH ×2 (09:06→16:33)
[2020-06-18] MEDS: DIVALPROEX SODIUM 125 MG CAP.SPRINK PO SCH ×4 (09:06→21:57)
[2020-06-18 16:00] VITALS: BP 144/84
[2020-06-18] MEDS: TAMSULOSIN 0.4 MG CAP.SR.24H PO SCH (17:38)
[2020-06-18 20:52] VITALS: BP 136/89
[2020-06-18] MEDS: LITHIUM CARBONATE 150 MG CAPSULE PO SCH (21:57)
[2020-06-18] MEDS: ZOLPIDEM TARTRATE 5 MG TABLET PO PRN (23:16)
[2020-06-19 08:00] VITALS: BP 132/80
[2020-06-19] MEDS: LITHIUM CARBONATE (300 MG CAP) 300 MG CAPSULE PO SCH (08:40)
[2020-06-19] MEDS: DIVALPROEX SODIUM 125 MG CAP.SPRINK PO SCH ×4 (08:40→20:45)
[2020-06-19] MEDS: ENSURE ENLIVE CHOC 237 ML CAN PO SCH ×2 (08:40→17:35)
[2020-06-19] MEDS: OLANZAPINE ZYDIS 5 MG TAB.RAPDIS PO SCH ×2 (08:40→17:35)
[2020-06-19 16:00] VITALS: BP 118/81
[2020-06-19] MEDS: TAMSULOSIN 0.4 MG CAP.SR.24H PO SCH (17:35)
[2020-06-19 20:00] VITALS: BP 129/78
[2020-06-19] MEDS: LITHIUM CARBONATE 150 MG CAPSULE PO SCH (20:45)
[2020-06-19] MEDS: ZOLPIDEM TARTRATE 5 MG TABLET PO PRN (23:59)
[2020-06-20] MEDS: MENTHOL/CETYLPYRD (CEPACOL) 1 LOZ LOZENGE PO PRN (00:02)
[2020-06-20 07:24] LABS: BASOPHILS % (AUTO) 0.7 % (0.0-2.0); EOSINOPHILS % (AUTO) 1.7 % (0.0-6.0); HEMATOCRIT 42 % (39-51); HEMOGLOBIN 13.9 g/dL (13.5-17.5); LYMPHOCYTES # (AUTO) 0.9 /CMM (0.8-4.8); LYMPHOCYTES % (AUTO) 13.2 % (20.0-44.0); MEAN CORPUSCULAR HGB CONC 33 g/dl (31.0-36.0); MEAN CORPUSCULAR VOLUME 94 fL (80-96); MONOCYTES # (AUTO) 0.4 /CMM (0.1-1.30); MONOCYTES % (AUTO) 5.5 % (2.0-12.0); NEUTROPHILS # (AUTO) 5.2 /CMM (1.8-8.9); NEUTROPHILS % (AUTO) 78.9 % (43.0-81.0); PLATELET COUNT (AUTO) 244 /CMM (150-450); RED BLOOD CELL COUNT(AUTO) 4.46 MIL/uL (4.5-6.0); WHITE BLOOD COUNT (AUTO) 6.6 K/uL (4.3-11.0)
--- NOTE | 2020-06-20 07:26 | NUR ---
RN NOTE PATIENT IS AWAKE AND VERBALLY RESPONSIVE, SEEN AMBULATING IN THE HALLWAY. NO S/S OF DISTRESS AT THIS TIME. BREATHING IS EVEN AND UNLABORED, TOLERATING ROOM AIR. DENIES SUICIDAL/HOMICIDAL IDEATION AT THIS TIME. SAFETY PRECAUTIONS IN PLACE. WILL CONTINUE TO MONITOR.
[2020-06-20] MEDS: ENSURE ENLIVE CHOC 237 ML CAN PO SCH (07:41)
[2020-06-20 08:00] VITALS: BP 117/93
[2020-06-20] MEDS: DIVALPROEX SODIUM 125 MG CAP.SPRINK PO SCH ×2 (08:28→12:10)
[2020-06-20] MEDS: OLANZAPINE ZYDIS 5 MG TAB.RAPDIS PO SCH (08:29)
[2020-06-20] MEDS: LITHIUM CARBONATE (300 MG CAP) 300 MG CAPSULE PO SCH (08:29)
[2020-06-20 08:32] LABS: ALBUMIN 3.8 g/dL (3.4-5.0); BILIRUBIN,TOTAL 0.6 mg/dL (0.2-1.0); CALCIUM, SERUM 9.2 mg/dL (8.5-10.1); CREATININE 0.9 mg/dL (0.6-1.3); POTASSIUM 4.1 mmol/L (3.5-5.1); TOTAL PROTEIN, SERUM 7.2 g/dL (6.4-8.2)
--- NOTE | 2020-06-20 08:45 | NUR ---
Family Contact: SW spoke with patient's Saloni ([phone]) and confirmed that she would be able to parts picker the pt around 2pm as planned. SW went through the options the pts has if the pt begins to behave inappropriately again and SW stated that she would provide her with psychiatrist referrals since the pt does not like his current one.
--- NOTE | 2020-06-20 10:45 | NUR ---
Family Contact: SW spoke with patient's Saloni ([phone]) and informed her that the SW spoke with her concrete block plant supervisor, Dennise Huff LCSW, who approved a rapid covid test for the pt. ROXANNA then informed her of how to go about picking the pt up from the hospital and asked her to arrive around 3PM to allow time for the results of the test.
--- NOTE | 2020-06-20 11:08 | NUR ---
RN NOTES COVID SWAB TEST KIT OBTAINED FROM LAB; SWAB SPECIMEN COLLECTED PER PROTOCOL, PROCEDURE TOLERATED WELL BY PATIENT.
--- NOTE | 2020-06-20 12:08 | NUR ---
RN NOTES LAB CALLED W/ COVID TEST RESULT BEING NEGATIVE. WILL CONTINUE TO MONITOR.
--- NOTE | 2020-06-20 13:46 | NUR ---
Discharge Note: Pt will be discharged back home to [id number] [place] [address] [address], [place] [address]; ([phone]). Pts , Saloni ([phone]), will flower picker the pt around 3PM. Upon discharge, the pt appears to be in a manic mood and presents with a hyper affect. Pt appears to be alert and oriented x4. Pt denies both suicidal and homicidal ideation as well as auditory and visual hallucinations. Pt appears to be ambulatory with a steady gait. Pt appears to be disheveled and ungroomed. Pt was able to maintain appropriate and eye contact. Pt was able to understand his discharge plan to return home. Pt will be under the care of his psychiatrist, Dr. Haley Dodson, located at [address] [place] [address]; . SW called and left a voicemail about receiving a fax number to send records to. SW will await a call back to send the records. Pt will also be under the care of his sales and customer relations rep, Dr. Marsha Frausto, located at [address] [facility] [address] [address]; . The multidisciplinary exit care form was done, printed, signed, and given to the patient.
--- NOTE | 2020-06-20 15:37 | NUR ---
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 Patient is alert, oriented x3, able to make needs known, and verbally responsive, compliant w/ meds, medically-stable condition. Patient denies suicidal/homicidal ideation, auditory/visual hallucination. VS stable. Discharge instructions and education provided to patient and patient's responsible libertarian, Saloni (); discharge form and belongings list form signed by patient; belongings accounted for. Patient requested if armband can be kept; explained to patient that it needs to be removed but patient insisted to keep armband with himself. Patient was accompanied by me and TRACIE Hawthorne, to the lobby via wheelchair. Form signed by Saloni, . Patient and left facility via taxi. Charge nurse and MD aware of discharge.
--- NOTE | 2020-06-22 09:02 | NUR ---
MD Contact: ROXANNA faxed hospital notes to Dr. Dodson to the fax number: [phone].
== END 2020-06-20 15:15 | disposition home or self-care (01) | DRG 885 ==
LOC: ER 10:47 → GPS 13:01
PROVIDERS: ADMIT Psychiatry & Neurology Psychiatry; ATTEND Nurse Practitioner Acute Care
DX: F31.2 Bipolar disorder, current episode manic severe with psychotic features (principal); E44.0 Moderate protein-calorie malnutrition; N40.0 Benign prostatic hyperplasia without lower urinary tract symptoms; F29 Unspecified psychosis not due to a substance or known physiological condition; F41.9 Anxiety disorder, unspecified; Z73.6 Limitation of activities due to disability; R53.1 Weakness; R27.8 Other lack of coordination; Z98.890 Other specified postprocedural states; N52.9 Male erectile dysfunction, unspecified; Z91.81 History of falling; R73.9 Hyperglycemia, unspecified; G31.84 Mild cognitive impairment of uncertain or unknown etiology
CPT/HCPCS: 36415; 80048-TC; 80053-TC; 80061-TC; 80076-TC; 80164-TC; 83735-TC; 85025-TC; 87081-TC; C9803; G0480; J1200; J1630; J3490; Q0163; Q0177